=== PATIENT | female | born 1990 | race Two or more races ===

== ENCOUNTER 2024-12-23 13:06 | Emergency (ER) | payer OTHER ==
[~2024-12-23] VITALS: Ht 157.5 cm; Wt 66.5 kg
[2024-12-23] MEDS ORDERED: IBUP-1022 PO (13:12)
[2024-12-23] MEDS: ONDANSETRON 4MG 2ML VIAL IV ONE (15:07)
[2024-12-23] MEDS: FAMOTIDINE 20 MG/2 ML VIAL IVP ONE (15:07)
[2024-12-23 15:13] LABS: BASO # 0.0 10^3/uL (0.0-0.2); BASO % 0.3 % (0.0-1.0); EOS # 0.0 10^3/uL (0.0-0.5); EOS % 0.0 % (0.0-3.0); LYMPH # 0.7 10^3/uL (1.5-5.0); LYMPH % 7.3 % (24.0-44.0); MONO # 0.4 10^3/uL (0.0-0.8); MONO % 4.7 % (2.0-8.0); NEUTROPHILS # 8.2 10^3/uL (1.5-8.5); NEUTROPHILS % 87.4 % (36.0-66.0); PLATELET COUNT, AUTOMATED 220 10^3/uL (150-450)
[2024-12-23 15:27] LABS: INR 1.06
[2024-12-23 15:45] LABS: ALT/SGPT 17 U/L (7.0-40); AST/SGOT 25 U/L (<34); CALCIUM LEVEL 9.0 MG/DL (8.5-10.1); CARBON DIOXIDE LEVEL 22 MMOL/L (20-31); CHLORIDE LEVEL 103 MMOL/L (98-107); CREATININE FOR GFR 0.96 MG/DL (0.55-1.30); GLOMERULAR FILTRATION RATE 79.6 (>60); POTASSIUM SERUM 4.3 MMOL/L (3.5-5.1); SODIUM LEVEL 138 MMOL/L (136-145)
[2024-12-23] MEDS: KETOROLAC 30 MG/ML 1 ML VIAL IV ONE (18:34)
[2024-12-23 18:40] LABS: HCG, SERUM QUALITATIVE NEGATIVE (NEGATIVE)
[2024-12-23 18:56] LABS: KETONE, URINE AUTO RFX 1+ mg/dL (NEGATIVE); LEUKOCYTE ESTERASE UR AUTO RFX NEGATIVE (NEGATIVE); MUCUS, URINE RFX SMALL (NEGATIVE); NITRITE, URINE AUTO RFX NEGATIVE (NEGATIVE); RBC, URINE AUTO RFX TNTC /HPF (0-3); SQUAM EPITHELIAL CELL UR AURFX 1 /HPF (0-6); WBC, URINE AUTO RFX 2 /HPF (0-3)
[2024-12-23] MEDS ORDERED: TAMS-18 PO (19:40)
[2024-12-23] MEDS ORDERED: PERC5TAB12 PO (19:40)
[2024-12-23] MEDS ORDERED: ONDA-282 PO (19:40)
[2024-12-23 20:00] VITALS: BP 100/54; TEMP 98.7; O2SAT 99
[2024-12-23] MEDS: OXYCODONE/APAP 5MG/325MG(HOME DOSE PACK) PO ONE (20:04)
[2024-12-23] MEDS: ONDANSETRON 4MG ORAL DISINTEGRATING TAB PO ONE (20:04)
== END 2024-12-23 20:15 | disposition home or self-care (01) ==
LOC: M ED 13:06
DX: N20.1 Calculus of ureter (principal); Z87.442 Personal history of urinary calculi
CPT/HCPCS: 74176; 80047; 80048; 80076; 81001; 83605; 83690; 84703; 85025; 85610; 85730; 93005; 93041; 96374; 96375; 99285; J1308; J1885; J2405

== ENCOUNTER 2025-03-06 11:33 | Emergency (ER) | payer OTHER ==
[~2025-03-06] VITALS: Ht 157.5 cm; Wt 68.9 kg
[~2025-03-06 11:33] MED LIST: IBUP600T42 PO; ONDA-282 PO; PERC5TAB12 PO; TAMS-18 PO
[2025-03-06 12:13] LABS: KETONE, URINE AUTO RFX NEGATIVE (NEGATIVE); LEUKOCYTE ESTERASE UR AUTO RFX NEGATIVE (NEGATIVE); NITRITE, URINE AUTO RFX NEGATIVE (NEGATIVE); RBC, URINE AUTO RFX 0 /HPF (0-3); SQUAM EPITHELIAL CELL UR AURFX 0 /HPF (0-6); WBC, URINE AUTO RFX 0 /HPF (0-3)
[2025-03-06 12:33] LABS: BASO # 0.1 10^3/uL (0.0-0.2); BASO % 0.9 % (0.0-1.0); EOS # 0.1 10^3/uL (0.0-0.5); EOS % 1.5 % (0.0-3.0); LYMPH # 2.2 10^3/uL (1.5-5.0); LYMPH % 36.8 % (24.0-44.0); MONO # 0.6 10^3/uL (0.0-0.8); MONO % 9.4 % (2.0-8.0); NEUTROPHILS # 3.0 10^3/uL (1.5-8.5); NEUTROPHILS % 51.1 % (36.0-66.0); PLATELET COUNT, AUTOMATED 252 10^3/uL (150-450)
[2025-03-06 12:49] LABS: HCG, SERUM QUALITATIVE NEGATIVE (NEGATIVE)
[2025-03-06 12:50] LABS: ALT/SGPT 34 U/L (7.0-40); AST/SGOT 36 U/L (<34)
[2025-03-06] MEDS: KETOROLAC 30 MG/ML 1 ML VIAL IV ONE (13:05)
[2025-03-06] MEDS ORDERED: PERC5TAB12 PO (13:33)
[2025-03-06] MEDS ORDERED: TAMS-18 PO (13:33)
[2025-03-06 13:50] VITALS: BP 109/72; TEMP 97.6; O2SAT 98
== END 2025-03-06 13:59 | disposition home or self-care (01) ==
LOC: M ED 11:33
DX: N20.1 Calculus of ureter (principal); Z87.442 Personal history of urinary calculi; N13.39 Other hydronephrosis
CPT/HCPCS: 74176; 80047; 80076; 81001; 83690; 84703; 85025; 96374; 99284; J1885

== ENCOUNTER 2025-03-26 05:45 | Emergency (ER) | payer OTHER ==
[~2025-03-26] VITALS: Ht 157.5 cm; Wt 66.4 kg
[2025-03-26 06:10] LABS: APPEARANCE, URINE HAZY (CLEAR); BACTERIA, URINE AUTO NEGATIVE (NEGATIVE); BILIRUBIN, URINE AUTO NEGATIVE (NEGATIVE); BLOOD, URINE BLOOD 3+ (NEGATIVE); GLUCOSE, URINE (UA) AUTO NEGATIVE (NEGATIVE); KETONE, URINE AUTO 1+ mg/dL (NEGATIVE); LEUKOCYTE ESTERASE, URINE AUTO NEGATIVE (NEGATIVE); MUCUS, URINE LARGE (NEGATIVE); NITRITE, URINE AUTO NEGATIVE (NEGATIVE); PROTEIN, URINE AUTO 1+ mg/dL (NEGATIVE); RBC, URINE AUTO TNTC /HPF (0-3); SPECIFIC GRAVITY URINE AUTO 1.024 (1.002-1.035); SQUAMOUS EPITHELIAL CELL UR AU 2 /HPF (0-6); UROBILINOGEN, URINE AUTO 0.2 mg/dL (0.0-2.0); WBC, URINE AUTO 15 /HPF (0-3)
[2025-03-26] MEDS: ONDANSETRON 4MG/2ML VIAL IV ONE (07:03)
[2025-03-26] MEDS: NS (Normal Saline) 0.9% 1,000 ML IV ONE (07:03)
[2025-03-26] MEDS: KETOROLAC 30 MG/ML 1 ML VIAL IV ONE (07:03)
[2025-03-26 07:23] LABS: BASO # 0.0 10^3/uL (0.0-0.2); BASO % 0.3 % (0.0-1.0); EOS # 0.0 10^3/uL (0.0-0.5); EOS % 0.1 % (0.0-3.0); LYMPH # 0.9 10^3/uL (1.5-5.0); LYMPH % 11.3 % (24.0-44.0); MONO # 0.4 10^3/uL (0.0-0.8); MONO % 5.3 % (2.0-8.0); NEUTROPHILS # 6.2 10^3/uL (1.5-8.5); NEUTROPHILS % 82.7 % (36.0-66.0); PLATELET COUNT, AUTOMATED 216 10^3/uL (150-450)
[2025-03-26 07:48] LABS: ALT/SGPT 19.0 U/L (7.0-40); AST/SGOT 26.0 U/L (<34); CALCIUM LEVEL 8.9 MG/DL (8.5-10.1); CARBON DIOXIDE LEVEL 24.0 MMOL/L (20-31); CHLORIDE LEVEL 102.0 MMOL/L (98-107); CREATININE FOR GFR 0.96 MG/DL (0.55-1.30); GLOMERULAR FILTRATION RATE 79.6 (>60); POTASSIUM SERUM 3.8 MMOL/L (3.5-5.1); SODIUM LEVEL 136.0 MMOL/L (136-145)
[2025-03-26] MEDS ORDERED: KETO-204 PO (08:45)
[2025-03-26] MEDS ORDERED: PERC5TAB12 PO (08:45)
[2025-03-26] MEDS ORDERED: ONDA-282 PO (08:48)
[2025-03-26 09:12] VITALS: BP 94/57; TEMP 97.7; O2SAT 97
== END 2025-03-26 09:13 | disposition home or self-care (01) ==
LOC: M ED 05:45
DX: N13.2 Hydronephrosis with renal and ureteral calculous obstruction (principal); Z87.442 Personal history of urinary calculi
CPT/HCPCS: 74176; 80048; 80076; 81001; 83690; 85025; 96374; 96375; 99284; J1885; J2405